=== PATIENT | male | born 1965 | race Caucasian/White ===

== ENCOUNTER 2025-01-22 09:32 | Day surgery (SDC) | payer OTHER ==
[2025-01-16 12:52] VITALS: BMI 31.1
[2025-01-22] MEDS: CYCLOPENTOLATE 2% OPHTH SOLN 2 ML BOTTLE ONE (10:20)
[2025-01-22] MEDS: PHENYLEPHRINE 2.5% OPTHALMIC DROP 2ML BOTTLE ONE (10:20)
[2025-01-22] MEDS: CIPROFLOXACIN 0.3% EYE DROPS 5 ML BOTTLE ONE (10:20)
[2025-01-22] MEDS: TROPICAMIDE 1% 3 ML EYE DROPS ONE (10:20)
[2025-01-22] MEDS ORDERED: TETRACAINE 0.5% OPHTH SOLN 2 ML BOTTLE ONE (10:29)
[2025-01-22] MEDS ORDERED: BSS (NA/CA/MG/K) BALANCED SALT SOLUTION OPHTH SOLN 15 ML BOTTLE ONE (10:29)
[2025-01-22] MEDS ORDERED: CARBACHOL 0.01% INTRA-OCULAR 1.5 ML VIAL ONE (10:29)
[2025-01-22] MEDS ORDERED: EPINEPHrine 1:1000 P/F - 1 MG/ML AMP ONE (10:29)
[2025-01-22] MEDS ORDERED: LIDOCAINE 1% P/F 10 MG/ML VIAL ONE (10:29)
[2025-01-22] MEDS ORDERED: NEO/POLYMYX B SULF/DEXAMETH OPHTHALMIC 5ML BOTTLE ONE (10:29)
[2025-01-22 13:16] VITALS: BP 160/90; PULSE 66; RESP 20; TEMP 97.3
== END 2025-01-22 13:10 | disposition home or self-care (01) ==
LOC: FASU 09:32
PROVIDERS: ATTEND Ophthalmology
PROC: 08RJ3JZ Replacement of Right Lens with Synthetic Substitute, Percutaneous Approach (ICD-10-PCS; principal; 2025-01-22 12:08)
DX: H26.8 Other specified cataract (principal)
CPT/HCPCS: 66984; V2632